=== PATIENT | female | born 1990 | race American Indian/Alaskan Native ===

== ENCOUNTER 2020-08-12 17:21 | Emergency (ER) | payer OTHER ==
[2020-08-12] MEDS ORDERED: IBUPROFEN 600 MG TAB PO ONE (19:37)
[2020-08-12] MEDS ORDERED: dexAMETHasone 20 MG/5 ML VIAL IM ONE (19:37)
[2020-08-12] MEDS ORDERED: FAMOTIDINE 20 MG TAB PO ONE (19:37)
[2020-08-12] MEDS ORDERED: LIDOCAINE VISCOUS 2% 15 ML ORAL LIQD PO ONE (19:38)
--- NOTE | 2020-08-12 20:12 | Emergency Department Report ---
ED General Adult HPI - General Chief complaint: Sore Throat Stated complaint: THROAT/MEDICATION REACTION Source: patient Mode of arrival: Ambulatory Limitations: No Limitations - History of Present Illness Initial comments: Patient is a 30-year-old -[place] female with a history of asthma and GERD who presents to the ED with acute onset persistent sore throat, neck pain and painful ulcerated lesions on the right cheek and upper lip for the last 1 week. Patient states that she initially thought that she was having an allergic reaction to weight loss medicine that she had been taking for almost 2 weeks, and which she has since stopped taking 2 days ago after being advised by her primary care physician to do so. Patient states that the sore throat is mainly felt when she swallows or when she palpates her anterior neck lymph nodes. Patient denies fever, chills, nausea, vomiting, abdominal pain, dizziness, syncope, nasal and sinus congestion, dental pain, cough or change in vision and ear pain. MD Complaint: Sore throat; facial ulcerated lesions; Painful cervical lymph nodes -: Sudden, week(s) (1) Location: face, mouth Radiation: non-radiation Severity scale (0 -10): 4 Quality: aching, dull Consistency: constant Improves with: none Worsens with: eating Associated Symptoms: denies other symptoms, rash (Ulcerated painful mildly erythematous facial lesions). denies: confusion, chest pain, cough, diaphoresis, fever/chills, headaches, loss of appetite, malaise, nausea/vomiting, seizure, shortness of breath, syncope, weakness Treatments Prior to Arrival: none - Related Data Previous Rx's Medication Instructions Recorded Last Taken Type Acyclovir 400 mg PO Q8H #30 tablet 08/12/20 Unknown Rx Azithromycin [Zithromax Z-DWAIN] 250 mg PO DAILY #6 tablet 08/12/20 Unknown Rx Ibuprofen [Motrin] 800 mg PO Q8HR PRN #24 tablet 08/12/20 Unknown Rx Lidocaine Viscous 2% 10 ml PO Q6H PRN #120 ml 08/12/20 Unknown Rx predniSONE [Deltasone] 40 mg PO QDAY #10 tab 08/12/20 Unknown Rx Allergies Allergy/AdvReac Type Severity Reaction Status Date / Time No Known Allergies Allergy Unverified 08/12/20 17:34 ED Review of Systems ROS: Stated complaint: THROAT/MEDICATION REACTION Other details as noted in HPI Constitutional: denies: chills, fever Eyes: denies: eye pain, eye discharge, vision change ENT: throat pain, other (right upper lip and cheek ulcerated painful lesions). denies: ear pain Respiratory: denies: cough, shortness of breath, wheezing Cardiovascular: denies: chest pain, palpitations Endocrine: no symptoms reported Gastrointestinal: denies: abdominal pain, nausea, diarrhea Genitourinary: denies: urgency, dysuria, frequency, hematuria, discharge Musculoskeletal: denies: back pain, joint swelling, arthralgia Skin: rash (ulcerated painful lesions in the right cheek and upper lip), lesions (ulcerated painful lesions on the upper lip and right cheek), change in color Neurological: denies: headache, weakness, paresthesias Psychiatric: denies: anxiety, depression Hematological/Lymphatic: denies: easy bleeding, easy bruising ED Past Medical Hx - Past Medical History Previous Medical History?: Yes Hx Asthma: Yes Additional medical history: GERD - Surgical History Past Surgical History?: Yes Additional Surgical History: Breast reduction - Social History Smoking Status: Never Smoker - Medications Home Medications: Home Medications Medication Instructions Recorded Confirmed Last Taken Type Acyclovir 400 mg PO Q8H #30 tablet 08/12/20 Unknown Rx Azithromycin [Zithromax Z-DWAIN] 250 mg PO DAILY #6 tablet 08/12/20 Unknown Rx Ibuprofen [Motrin] 800 mg PO Q8HR PRN #24 tablet 08/12/20 Unknown Rx Lidocaine Viscous 2% 10 ml PO Q6H PRN #120 ml 08/12/20 Unknown Rx predniSONE [Deltasone] 40 mg PO QDAY #10 tab 08/12/20 Unknown Rx ED Physical Exam - General Limitations: No Limitations General appearance: alert, in no apparent distress - Head Head exam: Present: atraumatic, normocephalic, normal inspection - Eye Eye exam: Present: normal appearance, PERRL, EOMI Pupils: Present: normal accommodation - ENT ENT exam: Present: normal orophraynx, mucous membranes moist, TM's normal bilaterally, normal external ear exam, other (Ulcerated vesicular lesions in the upper lips and right cheek) - Neck Neck exam: Present: normal inspection, full ROM, lymphadenopathy (anterior cervical ) - Respiratory Respiratory exam: Present: normal lung sounds bilaterally. Absent: respiratory distress, wheezes, rales, rhonchi, stridor, chest wall tenderness, accessory muscle use, prolonged expiratory - Cardiovascular Cardiovascular Exam: Present: normal rhythm, tachycardia, normal heart sounds. Absent: systolic murmur, diastolic murmur, rubs, gallop - GI/Abdominal GI/Abdominal exam: Present: soft, normal bowel sounds. Absent: tenderness, guarding, rebound, hyperactive bowel sounds, hypoactive bowel sounds, organomegaly - Extremities Exam Extremities exam: Present: normal inspection, full ROM, normal capillary refill - Back Exam Back exam: Present: normal inspection, full ROM. Absent: tenderness, CVA tenderness (R), CVA tenderness (L), muscle spasm, paraspinal tenderness, vertebral tenderness - Neurological Exam Neurological exam: Present: alert, oriented X3, CN II-XII intact, normal gait, reflexes normal - Psychiatric Psychiatric exam: Present: normal affect, normal mood - Skin Skin exam: Present: warm, dry, intact, normal color, rash (Ulcerated vesicular lesions on right cheek and upper lip), erythema, vesicles ED Course Vital Signs 08/12/20 08/12/20 17:32 20:59 Temperature 98.9 F Pulse Rate 116 H 96 H Respiratory 18 14 Rate Blood Pressure 130/82 Blood Pressure 128/82 [Right] O2 Sat by Pulse 100 100 Oximetry ED Medical Decision Making - Medical Decision Making This is a 30-year-old -[place] female with a history of asthma and GERD who presents to the ED with acute onset persistent sore throat, neck pain and painful ulcerated lesions on the right cheek and upper lip for the last 1 week. Patient states that she initially thought that she was having an allergic reaction to weight loss medicine that she had been taking for almost 2 weeks, and which she has since stopped taking 2 days ago after being advised by her primary care physician to do so. Patient states that the sore throat is mainly felt when she swallows or when she palpates her anterior neck lymph nodes. In the ED, patient is alert and oriented x3 and is not in distress but anxious, afebrile and tachycardic in triage. Patient was treated for pain in the ED and also given Decadron treatment with Pepcid. Patient was discharged home on medications based on the physical exam findings of vesicular ulcerated lesions i n the upper lip and right cheek and suspected lymphadenopathy. - Differential Diagnosis Viral exanthem; Lymphadenopathy; Oral lesions; strep pharyngitis; allergy Critical care attestation.: If time is entered above; I have spent that time in minutes in the direct care of this critically ill patient, excluding procedure time. ED Disposition Clinical Impression: Stomatitis herpetiformis, Anterior cervical lymphadenopathy Acute pharyngitis Qualifiers: Pharyngitis/tonsillitis etiology: herpes simplex virus Qualified Code(s): B00.2 - Herpesviral gingivostomatitis and pharyngotonsillitis Disposition: TO HOME OR SELFCARE Is pt being admited?: No Does the pt Need Aspirin: No Condition: Stable Instructions: Oral Ulcers, Lymphadenopathy, Sore Throat, [id number] Additional Instructions: Take medication with food, drink plenty of fluids and follow-up with your primar y care physician in 7 to 10 days for reevaluation. Return to the ED immediately if symptoms get worse. Prescriptions: Acyclovir 400 mg PO Q8H #30 tablet predniSONE [Deltasone] 40 mg PO QDAY #10 tab Lidocaine Viscous 2% 10 ml PO Q6H PRN #120 ml PRN Reason: Sore Throat Ibuprofen [Motrin] 800 mg PO Q8HR PRN #24 tablet PRN Reason: Pain , Severe (7-10) Azithromycin [Zithromax Z-DWAIN] 250 mg PO DAILY #6 tablet Referrals: BRIGID TORRES MD [Primary Care Provider] - 3-5 Days Time of Disposition: 20:19 Print Language: ZAMBIAN
[2020-08-12 21:00] VITALS: BP 128/82
== END 2020-08-12 21:04 | disposition home or self-care (01) ==
LOC: ED 17:21
DX: K12.0 Recurrent oral aphthae (principal); R59.0 Localized enlarged lymph nodes; J02.9 Acute pharyngitis, unspecified; J45.909 Unspecified asthma, uncomplicated; Z98.890 Other specified postprocedural states; Z79.2 Long term (current) use of antibiotics; Z79.899 Other long term (current) drug therapy
CPT/HCPCS: 96372; 99282; J1100

== ENCOUNTER 2022-01-24 08:42 | Emergency (ER) | payer OTHER ==
--- NOTE | 2022-01-24 12:12 | Emergency Department Report ---
ED General Adult HPI - General Chief complaint: Sore Throat Stated complaint: NUMBNESS LT SHOULDER /ARM HAND SWOLLEN Source: patient Mode of arrival: Ambulatory Limitations: No Limitations - History of Present Illness Initial comments: 31 -year-old female presents to the ED complaining of chronic left shoulder and arm pain x1 year. States that she hit her arm over a year ago on bed rail and since then she has been complaining of intermittent pain. She states that she has been evaluated by orthopedic in the past and was given Motrin. Patient also complaining anterior cervical lymph node pain. Patient was seen in 2019 for the similar pain. States that she missed appointment with ENT. Denies any difficult swallowing. Patient is alert and oriented x3. No acute distress noted. No ill appearance noted. Severity scale (0 -10): 0 Consistency: intermittent Improves with: none Associated Symptoms: denies other symptoms - Related Data Previous Rx's Medication Instructions Recorded Last Taken Type Acyclovir 400 mg PO Q8H #30 tablet 08/12/20 Unknown Rx Azithromycin [Zithromax Z-DWAIN] 250 mg PO DAILY #6 tablet 08/12/20 Unknown Rx Ibuprofen [Motrin] 800 mg PO Q8HR PRN #24 tablet 08/12/20 Unknown Rx Lidocaine Viscous 2% 10 ml PO Q6H PRN #120 ml 08/12/20 Unknown Rx predniSONE [Deltasone] 40 mg PO QDAY #10 tab 08/12/20 Unknown Rx Naproxen [Naprosyn] 500 mg PO BID 15 Days #30 tablet 01/24/22 Unknown Rx predniSONE [Deltasone] 50 mg PO QDAY 5 Days #5 tab 01/24/22 Unknown Rx Allergies Allergy/AdvReac Type Severity Reaction Status Date / Time No Known Allergies Allergy Unverified 08/12/20 17:34 ED Review of Systems ROS: Stated complaint: NUMBNESS LT SHOULDER /ARM HAND SWOLLEN Other details as noted in HPI Constitutional: denies: chills, fever Eyes: denies: eye pain, eye discharge, vision change ENT: denies: ear pain, throat pain Respiratory: denies: cough, shortness of breath, wheezing Cardiovascular: denies: chest pain, palpitations Endocrine: no symptoms reported Gastrointestinal: denies: abdominal pain, nausea, diarrhea Genitourinary: denies: urgency, dysuria, discharge Musculoskeletal: denies: back pain, joint swelling, arthralgia Skin: denies: rash, lesions Neurological: denies: headache, weakness, paresthesias Psychiatric: denies: anxiety, depression Hematological/Lymphatic: denies: easy bleeding, easy bruising ED Past Medical Hx - Past Medical History Hx GERD: Yes Hx Asthma: Yes Additional medical history: GERD - Surgical History Additional Surgical History: Breast reduction - Social History Smoking Status: Never Smoker Substance Use Type: Marijuana - Medications Home Medications: Home Medications Medication Instructions Recorded Confirmed Last Taken Type Acyclovir 400 mg PO Q8H #30 tablet 08/12/20 01/24/22 Unknown Rx Azithromycin [Zithromax Z-DWAIN] 250 mg PO DAILY #6 tablet 08/12/20 01/24/22 Unknown Rx Ibuprofen [Motrin] 800 mg PO Q8HR PRN #24 tablet 08/12/20 01/24/22 Unknown Rx Lidocaine Viscous 2% 10 ml PO Q6H PRN #120 ml 08/12/20 01/24/22 Unknown Rx predniSONE [Deltasone] 40 mg PO QDAY #10 tab 08/12/20 01/24/22 Unknown Rx Naproxen [Naprosyn] 500 mg PO BID 15 Days #30 tablet 01/24/22 Unknown Rx predniSONE [Deltasone] 50 mg PO QDAY 5 Days #5 tab 01/24/22 Unknown Rx ED Physical Exam - General Limitations: No Limitations General appearance: alert, in no apparent distress - Head Head exam: Present: atraumatic, normocephalic - Eye Eye exam: Present: normal appearance - ENT ENT exam: Present: mucous membranes moist - Neck Neck exam: Present: normal inspection - Respiratory Respiratory exam: Present: normal lung sounds bilaterally. Absent: respiratory distress - Cardiovascular Cardiovascular Exam: Present: regular rate, normal rhythm. Absent: systolic murmur, diastolic murmur, rubs, gallop - GI/Abdominal GI/Abdominal exam: Present: soft, normal bowel sounds - Extremities Exam Extremities exam: Present: normal inspection - Back Exam Back exam: Present: normal inspection - Neurological Exam Neurological exam: Present: alert, oriented X3 - Psychiatric Psychiatric exam: Present: normal affect, normal mood - Skin Skin exam: Present: warm, dry, intact, normal color. Absent: rash ED Course Vital Signs 01/24/22 08:52 Temperature 98.6 F Pulse Rate 78 Respiratory 18 Rate Blood Pressure 113/66 O2 Sat by Pulse 100 Oximetry ED Medical Decision Making - Medical Decision Making 31 -year-old female presents to the ED complaining of chronic left shoulder and arm pain x1 year. States that she hit her arm over a year ago on bed rail and since then she has been complaining of intermittent pain. She states that she has been evaluated by orthopedic in the past and was given Motrin. Patient also complaining anterior cervical lymph node pain. Patient was seen in 2019 for the similar pain. States that she missed appointment with ENT. Denies any difficult swallowing. Patient is alert and oriented x3. No acute distress noted. No ill appearance noted. Physical examination patient has swelling anterior cervical lymph nodes. To follow-up with ENT and orthopedic. Rechecked the patient is resting quietly quietly and comfortable and feeling better. I discussed the results of diagnostic study, my clinical impression and the plan for further treatment with the patient. Patient agrees with plan and discharge at this present time. All question addressed. I have given the patient instruction regarding a diagnosis ,expectation ,follow- up and return precaution. I explained to the patient that emergent condition may arise and to return to the ED for new worsen and any new persisting condition. I have explained the importance of following up with the primary care physician or referral physician listed below has instructed. The patient verbalized understanding of discharge instruction. Critical care attestation.: If time is entered above; I have spent that time in minutes in the direct care of this critically ill patient, excluding procedure time. ED Disposition Clinical Impression: Anterior cervical lymphadenopathy, Chronic pain of left upper extremity Disposition: HOME / SELF CARE / HOMELESS Is pt being admited?: No Does the pt Need Aspirin: No Condition: Stable Instructions: What You Need to Know About Chronic Back Pain, Chronic Pain, Adult, Lymphadenopathy Additional Instructions: Take pain medication as prescribed Return to ED for any worsening symptom [facility] -[phone] Or your ENT of your choice Prescriptions: predniSONE [Deltasone] 50 mg PO QDAY 5 Days #5 tab Naproxen [Naprosyn] 500 mg PO BID 15 Days #30 tablet Referrals: ARNALDO ANNE MD [Primary Care Provider] - 3-5 Days EDWARD SHEN MD [Staff Physician] - 3-5 Days Forms: Work/School Release Form(ED) Time of Disposition: 12:28
[2022-01-24 12:14] VITALS: BP 130/81
== END 2022-01-24 12:40 | disposition home or self-care (01) ==
LOC: ED 08:42
DX: L04.0 Acute lymphadenitis of face, head and neck (principal); M79.622 Pain in left upper arm; J45.909 Unspecified asthma, uncomplicated; F12.90 Cannabis use, unspecified, uncomplicated
CPT/HCPCS: 99282